=== PATIENT | female | born 1980 | race African-American/Black ===

== ENCOUNTER 2019-04-05 16:19 | Emergency (ER) | payer BC ==
[2019-04-05] MEDS ORDERED: Lidocaine 1% with EPINEPHrine 1:100,000 20 ML MDV INJECT ONE (16:21)
[2019-04-05] MEDS ORDERED: Lidocaine 1% with EPINEPHrine 1:100,000 20 ML MDV ONE (16:22)
[2019-04-05] MEDS ORDERED: Diphtheria,Pertussis(Acell),Tetanus Vaccine 0.5 ML Syringe ONE (16:22)
[2019-04-05] MEDS ORDERED: Ampicillin/Sulbactam Na 3 GM in Sodium Chloride 0.9% 100 ML IV ONE (16:27)
--- NOTE | 2019-04-05 16:34 | EDM.PDOC ---
ED HPI GENERAL MEDICAL PROBLEM - General Chief Complaint: Bite:Animal, Insect Stated Complaint: DOG BITE Time Seen by Provider: 04/05/19 16:28 Source of Information: Reports: Patient History Limitations: Reports: No Limitations - History of Present Illness INITIAL COMMENTS - FREE TEXT/NARRATIVE: HISTORY AND PHYSICAL: History of present illness: Patient is a 39-year-old female who presents to the emergency room after an attack from a pit bull dog. She states she was at the school playground with her children when a pack of dogs were coming near the child. She states an unknown dog, one out of the 7, had bite her in the face, her right tricep and the top of the left ear. She denies any falls or head injury other than the dog bites. EMS initiated IV fluids and fentanyl for pain management. Patient denies any fever, chills, headache, change in vision, syncope or near syncope. Denies any chest pain, back pain, shortness of breath or cough. Denies any abdominal pain, nausea, vomiting, diarrhea, constipation or dysuria. Has not noted any blood in urine or stool. Patient has been eating and drinking appropriately. Denies any previous medical history. She does not take any prescribed or over the counter medications. States she is otherwise in good health. Review of systems: As per history of present illness and below otherwise all systems reviewed and negative. Past medical history: As per history of present illness and as reviewed below otherwise noncontributory. Surgical history: As per history of present illness and as reviewed below otherwise noncontributory. Social history: See social history for further information Family history: As per history of present illness and as reviewed below otherwise noncontributory. Physical exam: General: Well-developed and well-nourished -[place]er female. Alert and oriented. Nontoxic appearing and in mild distress due to pain. HEENT: See SKIN for facial laceration details, normocephalic, pupils equal and reactive bilaterally, negative for conjunctival pallor or scleral icterus, no intraocular pain with movement, mucous membranes moist, no oral lacerations, TMs normal bilaterally, throat clear, neck supple, nontender, trachea midline. No drooling or trismus noted. No meningeal signs. No hot potato voice noted. Lungs: Clear to auscultation, breath sounds equal bilaterally, chest nontender. Heart: S1S2, regular rate and rhythm without overt murmur Abdomen: Soft, nondistended, obese, nontender. Negative for masses. Negative for costovertebral tenderness. Pelvis: Stable nontender. Genitourinary: Deferred. Rectal: Deferred. Skin: Extensive bite sullivan to the right side of the face. She does have a linear laceration approximately 1 cm on the right eyelid, not puncturing the globe. She has a 3 x 1 cm irregular "T" shaped to the right cheek. Exposed subcutaneous fat, does not appear to have any muscular involvement. Adjacent to this there is a 1 cm linear laceration followed by superficial abrasions at the right cheek. There is a 1.5 cm laceration to the right upper lip that does extend through the vermilion border. No facial muscular deficits noted. 1 cm laceration to the left ear where the ear meets the scalp. 1 cm "L" shaped laceration to the right mid tricep. Extremities: Moves all extremities per self without difficulty or deficits, negative for cords or calf pain. Neurovascular unremarkable. Neuro: Awake, alert, oriented. Cranial nerves II through XII unremarkable. Cerebellum unremarkable. Motor and sensory unremarkable throughout. Exam nonfocal. Notes: Dr Alston was directly involved with this case. Due to the severity of the dog bites and the right facial involvement I want to get a CT of the maxillofacial to ensure there is no puncture of the sinus cavity or occult fractures. Patient is aware and agreeable. I did offer to close these lacerations here in the emergency room. She would like a surgeon or plastic surgeon to close these for aesthetic reasons. As the animal that bit her is unknown I will give her the initiation of rabies vaccine. Did give her an outpatient order to have the rabies vaccines continued on day 3, 7 and 14. IV antibiotics hung while here in the emergency room. Lidocaine is used to anesthetize the right tricep. Thoroughly cleansed and irrigated. Usual and customary procedures were followed for suture placement. 4-0 nylon, #2 interrupted sutures placed. Patient tolerated well. Wet-to-dry dressings were placed on the facial lacerations. CT Maxillofacial shows posttraumatic soft tissue swelling of the right face with multiple focal defect consistent with known lacerations. No evidence of underlying fracture. No dental injury to the right maxillary and mandibular teeth. No evidence of large soft tissue hematoma. No facial fractures. Paranasal sinuses and mastoid air cells are clear. [facility] does not have a plastic surgeon or facial trauma surgeon available. Dr Blair, ENT at [facility] was consulted on this case. He states he will accept this patient although he would like the patient offered his services or to choose another facility that has a plastic surgeon available. I did share these services with the patient including transfer to [place] or [place]. Patient would like to be treated at [facility]. Dr Aguirre, ER physician [facility], was informed of patient coming by private vehicle as we currently we do not have any ground ambulance is available. Patient is appropriate to be transferred via private vehicle. Her is able to drive her. Diagnostics: Maxillofacial CT Therapeutics: Unasyn, Tdap, Wound Care Impression: Facial lacerations Dog bite Plan: Nothing to eat or drink until you arrive to the ED at [facility] Go to [facility] - Dr Blair (ENT) has agreed to see you You've had Unasyn, Rabies vaccines, and tetanus update. Please return to [facility] on 04/08/19, 04/11/2019, and 04/18/2019 for rabies vaccine completion. Definitive disposition and diagnosis as appropriate pending reevaluation and review of above. Onset: Today Duration: Minutes: Location: Reports: Face, Upper Extremity, Right - Related Data Allergies Allergy/AdvReac Type Severity Reaction Status Date / Time No Known Allergies Allergy Verified 04/05/19 16:23 Home Meds: Home Meds . [No Known Home Meds] 04/05/19 [History] Past Medical History - Past Health History Medical/Surgical History: Denies Medical/Surgical History Social & Family History - Tobacco Use Smoking Status *Q: Never Smoker - Recreational Drug Use Recreational Drug Use: No ED ROS GENERAL - Review of Systems Review Of Systems: ROS reveals no pertinent complaints other than HPI. ED EXAM, ANIMAL BITE - Physical Exam Exam: See Below (See dictation) Course - Vital Signs Last Recorded V/S: Last Vital Signs Temp 97.3 F 04/05/19 16:39 Pulse 101 H 04/05/19 16:39 Resp 18 04/05/19 16:20 BP 145/92 H 04/05/19 16:39 Pulse Ox 95 04/05/19 16:39 - Orders/Labs/Meds Orders: Active Orders 24 hr Category Date Time Status Vaccines to be Administered [RC] PER UNIT ROUTINE Care 04/05/19 16:43 Active Max Facial Sinus wo Cont [CT] Stat Exams 04/05/19 16:26 Taken Meds: Medications Discontinued Medications Generic Name Dose Route Start Last Admin Trade Name Cleo PRN Reason Stop Dose Admin Diphtheria/Tetanus/Acell Pertussis Confirm 04/05/19 16:22 04/05/19 16:25 Adacel Administered 04/05/19 16:23 0.5 ml Dose Administration 0.5 ml .ROUTE .STK-MED ONE Ampicillin Sodium/Sulbactam 100 mls @ 200 mls/hr 04/05/19 16:27 04/05/19 16: 55 Sodium 3 gm/ Sodium Chloride IV 04/05/19 16:56 200 mls/hr ONETIME ONE Administration Lidocaine/Epinephrine 20 ml 04/05/19 16:21 04/05/19 16:58 Xylocaine 1% With Epinephrine 1:100,000 INJECT 04/05/19 16:22 20 ml ONETIME ONE Administration Lidocaine/Epinephrine Confirm 04/05/19 16:22 04/05/19 16:26 Xylocaine 1% With Epinephrine 1:100,000 Administered 04/05/19 16:23 Not Given Dose 20 ml .ROUTE .STK-MED ONE Rabies Immune Globulin 1,740 unit 04/05/19 16:41 Imogam Rabies-Ht IM 04/05/19 16:42 .ONCE ONE Rabies Vaccine 2.5 unit 04/05/19 17:00 04/05/19 17:28 Rabavert IM 04/05/19 17:01 2.5 unit .ONCE ONE Administration Departure - Departure Time of Disposition: 17:43 Disposition: DC/Tfer to [facility] 02 Clinical Impression: Facial laceration Qualifiers: Encounter type: initial encounter Qualified Code(s): S01.81XA - Laceration without foreign body of other part of head, initial encounter Dog bite Qualifiers: Encounter type: initial encounter Qualified Code(s): W54.0XXA - Bitten by dog, initial encounter - Discharge Information Instructions: Animal Bite, Adult, Hudj-[id number], Laceration Care, Adult, Easy-to -Read Referrals: PCP,None [Primary Care Provider] - Forms: ED Department Discharge Additional Instructions: The following information is given to patients seen in the emergency department who are being discharged to home. This information is to outline your options for follow-up care. We provide all patients seen in our emergency department with a follow-up referral. The need for follow-up, as well as the timing and circumstances, are variable depending upon the specifics of your emergency department visit. If you don't have a primary care physician on staff, we will provide you with a referral. We always advise you to contact your personal physician following an emergency department visit to inform them of the circumstance of the visit and for follow-up with them and/or the need for any referrals to a consulting specialist. The emergency department will also refer you to a specialist when appropriate. This referral assures that you have the opportunity for follow-up care with a specialist. All of these measure are taken in an effort to provide you with optimal care, which includes your follow-up. Under all circumstances we always encourage you to contact your private physician who remains a resource for coordinating your care. When calling for follow-up care, please make the office aware that this follow-up is from your recent emergency room visit. If for any reason you are refused follow-up, please contact the [facility] Emergency Department at and asked to speak to the emergency department charge nurse. [address] [facility] [address] 1. Nothing to eat or drink until you arrive to the ED at [facility] in [place] 2. Go to [facility] - Dr Blair (ENT) has agreed to see you 3. You've had Unasyn, Rabies vaccines, and tetanus update. 4. Please return to [facility] on 04/08/19, 04/11/2019, and 04/18/2019 for rabies vaccine completion. - My Orders Last 24 Hours: My Active Orders 04/05/19 16:26 Max Facial Sinus wo Cont [CT] Stat 04/05/19 16:43 Vaccines to be Administered [RC] PER UNIT ROUTINE - Assessment/Plan Last 24 Hours: My Active Orders 04/05/19 16:26 Max Facial Sinus wo Cont [CT] Stat 04/05/19 16:43 Vaccines to be Administered [RC] PER UNIT ROUTINE
[2019-04-05] MEDS ORDERED: Rabies Immune Globulin PF 150 Units/ML 2 ML SDV IM ONE (16:41)
[2019-04-05] MEDS ORDERED: Rabies Vaccine (Avian) 2.5 Unit Inj Kit IM ONE ×2 (16:44→17:00)
--- NOTE | 2019-04-05 17:41 | CT ---
INDICATION: Attacked by dog. laceration to the right face. COMPARISON: None. TECHNIQUE: Axial CT of the maxillofacial bones and face without contrast. Coronal and sagittal reformat images. FINDINGS: Asymmetric soft tissue swelling of the right face with focal soft tissue defect consistent with reported laceration sean. No evidence of underlying fracture to the mandible or maxilla, particular on the right. Visualized maxillary and mandibular teeth are intact. Normal articulation at the bilateral temporomandibular joints. No evidence of focal hematoma or active extravasation. Normal orbits bilaterally. Bilateral globes are intact. Visualized paranasal sinuses and mastoid air cells are clear. Partially visualized intracranial contents are unremarkable. IMPRESSION: 1. Posttraumatic soft tissue swelling of the right face with multiple focal defect consistent with known lacerations. No evidence of underlying fracture. No dental injury to the right maxillary and mandibular teeth. 2. No evidence of large soft tissue hematoma. 3. No facial fractures. 4. Paranasal sinuses and mastoid air cells are clear. Please note that all CT scans at this facility use dose modulation, iterative reconstruction, and/or weight-based dosing when appropriate to reduce radiation dose to as low as reasonably achievable. Dictated by Taiwo Wynn MD @ Apr 05 2019 5:37PM Signed by Dr. Taiwo Wynn @ Apr 05 2019 5:40PM
== END 2019-04-05 18:17 ==
LOC: MW.ED 16:19
DX: S41.151A Open bite of right upper arm, initial encounter (principal); S01.151A Open bite of right eyelid and periocular area, initial encounter; S01.551A Open bite of lip, initial encounter; S01.352A Open bite of left ear, initial encounter; Z23 Encounter for immunization; W54.0XXA Bitten by dog, initial encounter
CPT/HCPCS: 12001; 70486; 90376; 90471; 90675; 90715; 96365; 96372; 99285; J0295; J7030

== ENCOUNTER 2019-04-07 12:52 | Emergency (ER) | payer BC, MEDICAID | END 2019-04-07 13:02 | disposition left against medical advice (07) | LOC: MW.ED 12:52 | DX: Z53.21 Procedure and treatment not carried out due to patient leaving prior to being seen by health care provider (principal) ==

== ENCOUNTER 2019-04-17 14:10 | Emergency (ER) | payer BC, MEDICAID | END 2019-04-17 14:37 | disposition left against medical advice (07) | LOC: MW.ED 14:10 | DX: Z53.21 Procedure and treatment not carried out due to patient leaving prior to being seen by health care provider (principal) ==

== ENCOUNTER 2019-10-03 19:35 | Emergency (ER) | payer BC, MEDICAID ==
--- NOTE | 2019-10-03 21:14 | EDM.PDOC ---
ED HPI GENERAL MEDICAL PROBLEM - General Chief Complaint: Back Pain or Injury Stated Complaint: back pain post surg [id number] Time Seen by Provider: 10/03/19 20:15 Source of Information: Reports: Patient History Limitations: Reports: No Limitations - History of Present Illness INITIAL COMMENTS - FREE TEXT/NARRATIVE: Presents reporting a three-day history of low back pain that increases when she turns in bed. No known injury. She denies dysuria, fever, saddle anesthesia, cancer history, bowel or bladder problems, abdominal or pelvic pain, vaginal symptoms, nausea, vomiting or diarrhea. He states she has a little tingling and numbness down her right buttock and into her thigh. She has never had this kind of pain before. Her last menstrual period was 09/28. At the beginning of September she had a myomectomy. 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 ED EXAM,LOWER BACK PAIN/INJURY - Physical Exam Exam: See Below Exam Limited By: No Limitations General Appearance: Alert, No Apparent Distress Ears: Normal External Exam Nose: Normal Inspection Throat/Mouth: Normal Inspection Head: Atraumatic, Normocephalic Neck: Normal Inspection Respiratory/Chest: No Respiratory Distress, Lungs Clear, Normal Breath Sounds Cardiovascular: Normal Peripheral Pulses, Regular Rate, Rhythm, No Murmur GI/Abdominal: Soft, Non-Tender, No Distention Neurological: Alert, Normal Dorsiflexion, Normal Plantar Flexion, Normal Gait, Normal Reflexes, No Motor/Sensory Deficits, Oriented x 3 Psychiatric: Normal Affect, Normal Mood Skin Exam: Warm, Dry, Intact, Normal Color, No Rash Lymphatic: No Adenopathy Course - Vital Signs Last Recorded V/S: Last Vital Signs Temp 36.4 C 10/03/19 19:54 Pulse 80 10/03/19 19:54 Resp 16 10/03/19 19:54 BP 112/71 10/03/19 19:54 Pulse Ox 98 10/03/19 19:54 - Orders/Labs/Meds Meds: Medications Discontinued Medications Generic Name Dose Route Start Last Admin Trade Name Freq PRN Reason Stop Dose Admin Ketorolac Tromethamine 60 mg 10/03/19 21:07 Toradol IM 10/03/19 21:08 ONETIME ONE Departure - Departure Time of Disposition: 21:20 Disposition: Home, Self-Care 01 Condition: Good Clinical Impression: Lumbar back pain - Discharge Information Referrals: PCP,Not In Area [Primary Care Provider] - [facility] [Outside] Additional Instructions: The following information is given to patients seen in the emergency department who are being discharged to home. This information is to outline your options for follow-up care. We provide all patients seen in our emergency department with a follow-up referral. The need for follow-up, as well as the timing and circumstances, are variable depending upon the specifics of your emergency department visit. If you don't have a primary care physician on staff, we will provide you with a referral. We always advise you to contact your personal physician following an emergency department visit to inform them of the circumstance of the visit and for follow-up with them and/or the need for any referrals to a consulting specialist. The emergency department will also refer you to a specialist when appropriate. This referral assures that you have the opportunity for follow-up care with a specialist. All of these measure are taken in an effort to provide you with optimal care, which includes your follow-up. Under all circumstances we always encourage you to contact your private physician who remains a resource for coordinating your care. When calling for follow-up care, please make the office aware that this follow-up is from your recent emergency room visit. If for any reason you are refused follow-up, please contact the [facility] Emergency Department at and asked to speak to the emergency department charge nurse. 1. Diclofenac one twice daily starting tomorrow for a few days and then as needed 2. Cyclobenzaprine, muscle relaxant. One every 8 hours as needed. No driving or operating machinery 3. At bedtime Valium one orally. No driving or operating machinery 4. For more severe pain, tramadol 1 every 4 hours. No driving or operating machinery 5. Do NOT take all these medications together or in close proximity to each other. 6. Follow-up in primary care this week for further evaluation. 7. Return promptly for fevers, troubles with urinating or bowel movements, difficulty walking, other new or worrisome symptoms Sepsis Event Note - Evaluation Sepsis Screening Result: No Definite Risk - Focused Exam Vital Signs: Vital Signs Temp Pulse Resp BP Pulse Ox 10/03/19 19:54 36.4 C 80 16 112/71 98 Date Exam was Performed: 10/03/19 Time Exam was Performed: 21:09
[2019-10-03] MEDS: Ketorolac 60 MG/2 ML SDV IM ONE (21:28)
== END 2019-10-03 21:44 | disposition home or self-care (01) ==
LOC: MW.ED 19:35
DX: M54.5 Low back pain (principal)
CPT/HCPCS: 96372; 99283; J1885; 99282

== ENCOUNTER 2019-11-29 11:23 | Emergency (ER) | payer BC, OTHER ==
[2019-11-29] MEDS ORDERED: Acetaminophen 325 MG Tab PO ONE (13:52)
--- NOTE | 2019-11-29 14:03 | EDM.PDOC ---
ED HPI GENERAL MEDICAL PROBLEM - General Chief Complaint: Abdominal Pain Stated Complaint: ABDOMINAL PAIN Time Seen by Provider: 11/29/19 13:30 - History of Present Illness INITIAL COMMENTS - FREE TEXT/NARRATIVE: 39-year-old female presented to ER from the clinic after Hystero salpingogram. Patient reported that the physician doing the procedure was not handling the speculum correctly and caused her to have more pain than usual. States that her vagina is sore. Patient complained to the supervisor assembling and per the patient the supervisor assembling encouraged her to come to the ER to get checked. Before the procedure patient was at her baseline. Any bleeding denies any dysuria denies any abdominal pain. Vaginal Pain Score (Numeric/FACES): 6 - Related Data Allergies Allergy/AdvReac Type Severity Reaction Status Date / Time No Known Allergies Allergy Verified 11/29/19 12:22 Home Meds: Home Meds . 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9 F 11/29/19 12:23 Pulse 72 11/29/19 12:23 Resp 16 11/29/19 12:23 BP 106/80 11/29/19 12:23 Pulse Ox 100 11/29/19 12:23 - Orders/Labs/Meds Meds: Medications Discontinued Medications Generic Name Dose Route Start Last Admin Trade Name Freq PRN Reason Stop Dose Admin Acetaminophen 650 mg 11/29/19 13:52 11/29/19 14:55 Tylenol PO 11/29/19 13:53 Not Given NOW ONE - Re-Assessments/Exams Free Text/Narrative Re-Assessment/Exam: 11/30/19 08:01 Initially spoke to patient in location where a comprehensive exam could not be carried out. By the time we were able to transfer her to a room, she decided to leave AMA. she was aware of the plan to exam her more thoughroughly but refused. she left AMA before I could do an appropriate physical exam and the risks of doing so were explained. she understood, and had appropriate cognition to make her own decisions. discomfort likely 2/2 to HSG. Documented time seen was approximate 11/30/19 08:04 Departure - Departure Time of Disposition: 14:00 Disposition: Against Medical Advice 07 Clinical Impression: Pelvic pain - Discharge Information Referrals: PCP,None [Primary Care Provider] - Forms: ED Department Discharge Sepsis Event Note - Evaluation Sepsis Screening Result: No Definite Risk - Focused Exam Date Exam was Performed: 11/30/19 Time Exam was Performed: 08:01
== END 2019-11-29 14:55 | disposition left against medical advice (07) ==
LOC: MW.ED 11:23
DX: R10.2 Pelvic and perineal pain (principal)
CPT/HCPCS: 99282; 99283

== ENCOUNTER 2020-07-06 18:26 | Emergency (ER) | payer BC, OTHER ==
[2020-07-06 20:33] LABS: BLOOD UREA NITROGEN,BUN 6 mg/dL (7.0-18.0); CARBON DIOXIDE,CO2 23.7 mmol/L (21.0-32.0); CHLORIDE,CL 104 mmol/L (98-107); GLUCOSE RANDOM 88 mg/dL (74-106); LIPASE 101 U/L (73-393); POTASSIUM,K 3.7 mmol/L (3.5-5.1); SODIUM,NA 137 mmol/L (136-145)
[2020-07-06] MEDS ORDERED: Ketorolac 30 MG/ML SDV IVPUSH ONE (20:34)
[2020-07-06] MEDS ORDERED: Orphenadrine 60 MG/2 ML Inj IM ONE (20:34)
[2020-07-06] MEDS ORDERED: Ketorolac 30 MG/ML SDV IM ONE (21:18)
--- NOTE | 2020-07-06 21:25 | CR ---
INDICATION: Pain TECHNIQUE: Cervical spine 3 view. COMPARISON: None FINDINGS: Bones: Straightening of cervical spine with normal alignment. No fractures. Joints: Mild degenerative changes C5 through C7. Soft tissues: Unremarkable. IMPRESSION: Mild degenerative changes C5 through C7. Dictated by Alli Lipscomb MD @ 07/06/2020 9:24:55 PM Dictated by: Alli Lipscomb MD @ 07/06/2020 21:25:00 (Electronically Signed)
--- NOTE | 2020-07-06 21:56 | EDM.PDOC ---
ED HPI GENERAL MEDICAL PROBLEM - General Chief Complaint: Cardiovascular Problem Stated Complaint: LEFT ARM PAIN Time Seen by Provider: 07/06/20 18:31 Source of Information: Reports: Patient History Limitations: Reports: No Limitations - History of Present Illness INITIAL COMMENTS - FREE TEXT/NARRATIVE: HISTORY AND PHYSICAL: History of present illness: Patient is a 40-year-old female who presents to the ED today with concern of neck pain that is been ongoing for the past 4 days. Patient states that she has had this neck pain in the past and that has come and gone. Patient states that she has not ever had it last for 4 days and states that at times it feels like it shoots down her arm and into her chest. Patient states she has not taken anything for her symptoms. Patient denies any health history or any other symptoms or concerns. Patient denies fever, chills, shortness of breath, or cough. Denies headache, neck stiff ness, change in vision, syncope, or near syncope. Denies nausea, vomiting, abdominal pain, diarrhea, constipation, or dysuria. Has not noted any blood in urine or stool. Patient has been eating and drinking appropriately. Review of systems: As per history of present illness and below otherwise all systems reviewed and negative. Past medical history: As per history of present illness and as reviewed below otherwise noncontributory. Surgical history: As per history of present illness and as reviewed below otherwise noncontributory. Social history: See social history for further information Family history: As per history of present illness and as reviewed below otherwise noncontributory. Physical exam: General: Patient is alert, oriented, and in no acute distress. Patient sitting comfortably on exam table. HEENT: Atraumatic, normocephalic, pupils equal and reactive bilaterally, negative for conjunctival pallor or scleral icterus, mucous membranes moist, TMs normal bilaterally, throat clear, neck supple, nontender, trachea midline. No drooling or trismus noted. No meningeal signs. No hot potato voice noted. Lungs: Clear to auscultation, breath sounds equal bilaterally, chest nontender. Heart: S1S2, regular rate and rhythm without overt murmur Abdomen: Soft, nondistended, nontender. Negative for masses or hepatosplenomegaly. Negative for costovertebral tenderness. Pelvis: Stable nontender. Genitourinary: Deferred. Rectal: Deferred. Skin: Intact, warm, dry. No lesions or rashes noted. Extremities: No obvious deformity of the complete spine. No step-offs, crepitus, or point tenderness to palpation of the complete spine. Patient does have pain with palpation of the left-sided trapezius muscle body with alleviation of pain with massage of this muscle. Patient does have full range of motion of complete spine with some pain with range of motion of the cervical spine. Patient able to ambulate into the ED today without any difficulty. Otherwise, atraumatic, negative for cords or calf pain. Neurovascular u nremarkable. Neuro: Awake, alert, oriented. Cranial nerves II through XII unremarkable. Cerebellum unremarkable. Motor and sensory unremarkable throughout. Exam nonfocal. Notes: Dr. Springer verbally involved in patient care. Patient does express she has a history of heavy menstrual cycle and anemia is microcytic so likely a result of this. Signs and symptoms that would prompt return to the ED thoroughly discussed with patient. Discussed the importance for follow up with PCP and establishing care with womens health provider. Voices understanding and is agreeable to plan of care. Denies any further questions or concerns at this time. Diagnostics: CBC, CMP, UA, Serum hcg, EKG, Trop, Cervical spine XR Therapeutics: Norflex, Toradol Prescription: Diclofenac, Flexeril Impression: Trapezius muscle spasm Microcytic Anemia Plan: 1. The medication you received today does cause drowsiness, so do not drive for the remaining day. 2. When resting please lay on a flat firm surface. Limit your mobility to prevent muscle stiffness. Get up to ambulate/move around/gentle stretching multiple times throughout the day. May alternate heat and ice to painful areas. 3. Tylenol as needed for back pain. Otherwise, take the prescribed Flexeril and diclofenac as directed. Diclofenac as an anti-inflammatory medication so do not take any additional NSAIDs with this medication, such as naproxen, ibuprofen, or Aleve. Flexeril, this medication may cause drowsiness, so do not take it while driving or needing to be functioning outside of the home. 4. Follow-up with your primary care provider and OBGYN provider as discussed. Return to the ED as needed and as discussed. Definitive disposition and diagnosis as appropriate pending reevaluation and review of above. Left Arm Pain Score (Numeric/FACES): 7 chest Pain Score (Numeric/FACES): 7 - Related Data Allergies Allergy/AdvReac Type Severity Reaction Status Date / Time No Known Allergies Allergy Verified 07/06/20 19:48 Home Meds: Home Meds . 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 ED EXAM, GENERAL - Physical Exam Exam: See Below (see dictation) Course - Vital Signs Last Recorded V/S: Last Vital Signs Temp 98.2 F 07/06/20 19:44 Pulse 79 07/06/20 19:44 Resp 18 07/06/20 19:44 BP 123/69 07/06/20 19:44 Pulse Ox 100 07/06/20 19:44 - Orders/Labs/Meds Orders: Active Orders 24 hr Category Date Time Status EKG Documentation Completion [RC] STAT Care 07/06/20 19:49 Active Labs: Laboratory Tests 07/06/20 07/06/20 07/06/20 Range/Units 19:57 19:57 19:57 WBC 4.25 (4.0-11.0) K/uL RBC 3.93 L (4.30-5.90) M/uL Hgb 7.8 L (12.0-16.0) g/dL Hct 27.1 L (36.0-46.0) % MCV 69.0 L (80.0-98.0) fL MCH 19.8 L (27.0-32.0) pg MCHC 28.8 L (31.0-37.0) g/dL RDW Std Deviation 46.0 (28.0-62.0) fl RDW Coeff of [place] 18 H (11.0-15.0) % Plt Count 221 (150-400) K/uL MPV 10.60 (7.40-12.00) fL Neut % (Auto) 44.7 L (48.0-80.0) % Lymph % (Auto) 45.4 H (16.0-40.0) % [place] % (Auto) 6.6 (0.0-15.0) % Eos % (Auto) 2.1 (0.0-7.0) % Baso % (Auto) 1.2 (0.0-1.5) % Neut # (Auto) 1.9 (1.4-5.7) K/uL Lymph # (Auto) 1.9 (0.6-2.4) K/uL [place] # (Auto) 0.3 (0.0-0.8) K/uL Eos # (Auto) 0.1 (0.0-0.7) K/uL Baso # (Auto) 0.1 (0.0-0.1) K/uL Nucleated RBC % 0.0 /100WBC Nucleated RBCs # 0 K/uL Sodium 137 (136-145) mmol/L Potassium 3.7 (3.5-5.1) mmol/L Chloride 104 (98-107) mmol/L Carbon Dioxide 23.7 (21.0-32.0) mmol/L BUN 6 L (7.0-18.0) mg/dL Creatinine 0.6 (0.6-1.0) mg/dL Est Cr Clr Drug Dosing TNP Estimated GFR (MDRD) > 60.0 ml/min Glucose 88 (74-106) mg/dL Calcium 8.4 L (8.5-10.1) mg/dL Total Bilirubin 0.1 L (0.2-1.0) mg/dL AST 12 L (15-37) IU/L ALT 24 (14-63) IU/L Alkaline Phosphatase 59 (46-116) U/L Troponin I < 0.050 (0.000-0.056) ng/mL Total Protein 7.7 (6.4-8.2) g/dL Albumin 3.9 (3.4-5.0) g/dL Globulin 3.8 (2.6-4.0) g/dL Albumin/Globulin Ratio 1.0 (0.9-1.6) Lipase 101 (73-393) U/L HCG, Qual NEGATIVE (NEG) Urine Color Urine Appearance Urine pH (5.0-8.0) Ur Specific [place] (1.001-1.035) Urine Protein (NEGATIVE) mg/dL Urine Glucose (UA) (NEGATIVE) mg/dL Urine Ketones (NEGATIVE) mg/dL Urine Occult Blood (NEGATIVE) Urine Nitrite (NEGATIVE) Urine Bilirubin (NEGATIVE) Urine Urobilinogen (<2.0) EU/dL Ur Leukocyte Esterase (NEGATIVE) 07/06/20 Range/Units 20:00 WBC (4.0-11.0) K/uL RBC (4.30-5.90) M/uL Hgb (12.0-16.0) g/dL Hct (36.0-46.0) % MCV (80.0-98.0) fL MCH (27.0-32.0) pg MCHC (31.0-37.0) g/dL RDW Std Deviation (28.0-62.0) fl RDW Coeff of Enrike (11.0-15.0) % Plt Count (150-400) K/uL MPV (7.40-12.00) fL Neut % (Auto) (48.0-80.0) % Lymph % (Auto) (16.0-40.0) % [place] % (Auto) (0.0-15.0) % Eos % (Auto) (0.0-7.0) % Baso % (Auto) (0.0-1.5) % Neut # (Auto) (1.4-5.7) K/uL Lymph # (Auto) (0.6-2.4) K/uL [place] # (Auto) (0.0-0.8) K/uL Eos # (Auto) (0.0-0.7) K/uL Baso # (Auto) (0.0-0.1) K/uL Nucleated RBC % /100WBC Nucleated RBCs # K/uL Sodium (136-145) mmol/L Potassium (3.5-5.1) mmol/L Chloride (98-107) mmol/L Carbon Dioxide (21.0-32.0) mmol/L BUN (7.0-18.0) mg/dL Creatinine (0.6-1.0) mg/dL Est Cr Clr Drug Dosing Estimated GFR (MDRD) ml/min Glucose (74-106) mg/dL Calcium (8.5-10.1) mg/dL Total Bilirubin (0.2-1.0) mg/dL AST (15-37) IU/L ALT (14-63) IU/L Alkaline Phosphatase (46-116) U/L Troponin I (0.000-0.056) ng/mL Total Protein (6.4-8.2) g/dL Albumin (3.4-5.0) g/dL Globulin (2.6-4.0) g/dL Albumin/Globulin Ratio (0.9-1.6) Lipase (73-393) U/L HCG, Qual (NEG) Urine Color YELLOW Urine Appearance CLEAR Urine pH 5.0 (5.0-8.0) Ur Specific [place] 1.010 (1.001-1.035) Urine Protein NEGATIVE (NEGATIVE) mg/dL Urine Glucose (UA) NEGATIVE (NEGATIVE) mg/dL Urine Ketones NEGATIVE (NEGATIVE) mg/dL Urine Occult Blood NEGATIVE (NEGATIVE) Urine Nitrite NEGATIVE (NEGATIVE) Urine Bilirubin NEGATIVE (NEGATIVE) Urine Urobilinogen 0.2 (<2.0) EU/dL Ur Leukocyte Esterase NEGATIVE (NEGATIVE) Meds: Medications Discontinued Medications Generic Name Dose Route Start Last Admin Trade Name Evensq PRN Reason Stop Dose Admin Ketorolac Tromethamine 30 mg 07/06/20 20:34 07/06/20 21:17 Toradol IVPUSH 07/06/20 20:35 Not Given ONETIME ONE Ketorolac Tromethamine 30 mg 07/06/20 21:18 07/06/20 21:19 Toradol IM 07/06/20 21:19 30 mg ONETIME ONE Administration Orphenadrine Citrate 60 mg 07/06/20 20:34 07/06/20 21:13 Norflex IM 07/06/20 20:35 60 mg ONETIME ONE Administration Departure - Departure Time of Disposition: 21:53 Disposition: Home, Self-Care 01 Clinical Impression: Trapezius muscle spasm Instructions: Muscle Cramps and Spasms, [id number] Referrals: Susanna Champion DO [Primary Care Provider] - Forms: ED Department Discharge Additional Instructions: The following information is given to patients seen in the emergency department who are being discharged to home. This information is to outline your options for follow-up care. We provide all patients seen in our emergency department with a follow-up referral. The need for follow-up, as well as the timing and circumstances, are variable depending upon the specifics of your emergency department visit. If you don't have a primary care physician on staff, we will provide you with a referral. We always advise you to contact your personal physician following an emergency department visit to inform them of the circumstance of the visit and for follow-up with them and/or the need for any referrals to a consulting specialist. The emergency department will also refer you to a specialist when appropriate. This referral assures that you have the opportunity for follow-up care with a specialist. All of these measure are taken in an effort to provide you with optimal care, which includes your follow-up. Under all circumstances we always encourage you to contact your private physician who remains a resource for coordinating your care. When calling for follow-up care, please make the office aware that this follow-up is from your recent emergency room visit. If for any reason you are refused follow-up, please contact the [facility] at and asked to speak to the emergency department charge nurse. [facility] [address] [place] [id number] [address] 1. The medication you received today does cause drowsiness, so do not drive for the remaining day. 2. When resting please lay on a flat firm surface. Limit your mobility to prevent muscle stiffness. Get up to ambulate/move around/gentle stretching multiple times throughout the day. May alternate heat and ice to painful areas. 3. Tylenol as needed for back pain. Otherwise, take the prescribed Flexeril and diclofenac as directed. Diclofenac as an anti-inflammatory medication so do not take any additional NSAIDs with this medication, such as naproxen, ibuprofen, or Aleve. Flexeril, this medication may cause drowsiness, so do not take it while driving or needing to be functioning outside of the home. 4. Follow-up with your primary care provider and OBGYN provider as discussed. Return to the ED as needed and as discussed. Sepsis Event Note (ED) - Evaluation Sepsis Screening Result: No Definite Risk - Focused Exam Vital Signs: Vital Signs Temp Pulse Resp BP Pulse Ox 07/06/20 19:44 98.2 F 79 18 123/69 100 - My Orders Last 24 Hours: My Active Orders 07/06/20 19:49 EKG Documentation Completion [RC] STAT - Assessment/Plan Last 24 Hours: My Active Orders 07/06/20 19:49 EKG Documentation Completion [RC] STAT
--- NOTE | 2020-07-23 04:09 | PCM.SN.2 ---
#1 Interpretation EKG Date: 07/06/20 Time: 19:46 Rhythm: NSR Rate (Beats/Min): 75 [place]: Normal P-Wave: Present QRS: Normal ST-T: Other (Isolated T wave inversion in V2) QT: Normal Comparison: NA - No Prior EKG EKG Interpretation Comments: Normal sinus rhythm with isolated T wave inversion
== END 2020-07-06 22:19 | disposition home or self-care (01) ==
LOC: MW.ED 18:26
DX: M62.838 Other muscle spasm (principal); D50.9 Iron deficiency anemia, unspecified
CPT/HCPCS: 36415; 72040; 80053; 81003; 83690; 84484; 84703; 85025; 93005; 96372; 99284; J1885; J2360; 99283

== ENCOUNTER 2022-04-08 20:54 | Emergency (ER) | payer MEDICAID, OTHER, SELFPAY ==
[2022-04-08] MEDS ORDERED: Lactated Ringers 1,000 ML IV STA (21:56)
[2022-04-08 22:35] LABS: CARBON DIOXIDE,CO2 28.1 mmol/L (21.0-32.0); POTASSIUM,K 4.5 mmol/L (3.5-5.1)
[2022-04-09] MEDS ORDERED: Cephalexin 500 MG Cap PO STA (00:27)
[2022-04-09] MEDS ORDERED: Iopamidol 755 MG/ML 500 ML Multipack Bottle IVPUSH ONE (04:31)
== END 2022-04-09 00:51 | disposition home or self-care (01) ==
LOC: MW.ED 20:54
DX: T81.31XA Disruption of external operation (surgical) wound, not elsewhere classified, initial encounter (principal); L76.32 Postprocedural hematoma of skin and subcutaneous tissue following other procedure; L76.34 Postprocedural seroma of skin and subcutaneous tissue following other procedure; Z79.899 Other long term (current) drug therapy
CPT/HCPCS: 36415; 71260; 80053; 83605; 85025; 85610; 87040; 99284; A9270; J7120; Q9967; 99283